=== PATIENT | female | born 1990 | race Hispanic/Latino ===

== ENCOUNTER → 2025-04-06 15:10 | Outpatient (REF) | payer OTHER, SELFPAY | LOC: RAD 15:10 | DX: N94.6 Dysmenorrhea, unspecified (principal) | CPT/HCPCS: 76830; 76856 ==

== ENCOUNTER → 2025-06-01 18:42 | Outpatient (REF) | payer OTHER, SELFPAY ==
[2025-06-05 03:22] LABS: HPV, High Risk Not Detected; HPV, High Risk Source Cervical
[2025-06-05 12:50] LABS: Chlamydia trachomatis,ThinPrep Positive (Negative); Neisseria gonorrhoeae,ThinPrep Negative (Negative); Specimen Source Cervical
== END ==
LOC: CLINIC 18:42
PROVIDERS: ATTENDING PHYSICIAN Obstetrics & Gynecology Gynecology
DX: Z12.4 Encounter for screening for malignant neoplasm of cervix (principal)
CPT/HCPCS: 87491; 87591; 87624